=== PATIENT | female | born 1970 | race Caucasian/White ===

== ENCOUNTER → 2017-08-29 | Outpatient (CLI) | payer OTHER ==
--- NOTE | 2017-08-29 08:57 | US ---
EXAMINATION TYPE: US abdomen complete DATE OF EXAM: 08/29/2017 COMPARISON: MRI lumbar spine September 06, 2016 CLINICAL HISTORY: R10.9 Unspecified abdominal pain. Bloating, RUQ pain, vomiting, belching EXAM MEASUREMENTS: Liver Length: 17.0 cm Gallbladder Wall: 0.2 cm CBD: 0.5 cm Spleen: 13.2 cm Right Kidney: 10.5 x 4.7 x 4.5 cm Left Kidney: 12.3 x 5.9 x 5.3 cm *Technical limitations due to large amount of overlying bowel content Pancreas: portions obscured by overlying bowel Liver: upper limits of normal, attenuating Gallbladder: non mobile echogenic area = 0.4cm Evidence for sonographic Gifford's sign: yes CBD: wnl Spleen: upper limits of normal Right Kidney: ?possible subtle isoechoic area mid/lateral = 2.9 x 2.4 x 2.5cm vs. lobulated renal c ontour Left Kidney: lobulated Upper IVC: wnl Abd Aorta: wnl The liver is heterogeneously hyperechoic. Evaluation focal mass is suboptimal due to the heterogeneit y. The intrahepatic portion of the IVC and visualized abdominal aorta are within normal limits. The re is no evidence of cholelithiasis. Common bile duct is unremarkable. The visualized portions of t he pancreas are homogenous. The spleen is mildly enlarged. Kidneys are symmetric and free of hydron ephrosis. Some cortical thinning on the right is felt present. In the right kidney lateral aspect the re is round slightly isoechoic 2.9 x 2.4 cm area in which solid lesion cannot be excluded and follow- up is advised. No corresponding abnormality is seen on MRI lumbar spine 1 year ago, I favor lobulated contour. IMPRESSION: 1. No gallstones or ultrasound evidence for acute cholecystitis. 2. Mild splenomegaly is seen and may warrant further clinical workup. 3. Heterogeneous hyperechoic appearance to liver favors diffuse fatty infiltration. Clinical and live r lab correlation advised. 4. Cannot exclude 2.9 cm lateral right kidney solid lesion though favor lobulated contour, further in vestigation with renal protocol contrast-enhanced CT or MRI is advised.
== END | disposition home or self-care (01) ==
LOC: RADUSWWP 06:50
PROVIDERS: ATTEND Family Medicine
DX: R16.1 Splenomegaly, not elsewhere classified (principal); K76.89 Other specified diseases of liver
CPT/HCPCS: 76700

== ENCOUNTER → 2019-08-06 | Outpatient (CLI) | payer OTHER ==
--- NOTE | 2019-08-06 16:23 | XR ---
EXAMINATION TYPE: XR hand complete LT, XR wrist complete LT DATE OF EXAM: 08/06/2019 CLINICAL HISTORY: pain TECHNIQUE: Frontal, lateral and oblique images of the left hand are obtained. COMPARISON: None. FINDINGS: There is no acute fracture/dislocation evident. The joint spaces appear within normal limi ts. The overlying soft tissue appears unremarkable. IMPRESSION: There is no acute fracture or dislocation. ICD 10 NO FRACTURE, INITIAL EVALUATION EXAMINATION TYPE: XR hand complete LT, XR wrist complete LT DATE OF EXAM: 08/06/2019 CLINICAL HISTORY: pain TECHNIQUE: Frontal, lateral and oblique images of the left wrist are obtained. A fluid views also ob tained. COMPARISON: None. FINDINGS: There is no acute fracture/dislocation evident. Generative narrowing ulno radial joint spa ce. The overlying soft tissue appears unremarkable. IMPRESSION: There is no acute fracture or dislocation seen. ICD 10 NO FRACTURE, INITIAL EVALUATION
== END | disposition home or self-care (01) ==
LOC: RADXRMAIN 16:03
PROVIDERS: ATTEND Emergency Medicine
DX: S63.502A Unspecified sprain of left wrist, initial encounter (principal); S63.8X2A Sprain of other part of left wrist and hand, initial encounter

== ENCOUNTER → 2019-09-11 | Outpatient (CLI) | payer OTHER ==
--- NOTE | 2019-09-11 13:02 | US ---
EXAMINATION TYPE: US kidneys/renal and bladder DATE OF EXAM: 09/11/2019 COMPARISON: NONE CLINICAL HISTORY: R10.9 abd pain. LLQ pain, microscopic hematuria, h/o renal stones EXAM MEASUREMENTS: Right Kidney: 11.1 x 5.1 x 4.8cm Left Kidney: 13.8 x 4.4 x 6.7cm Right Kidney: No hydronephrosis or masses seen Left Kidney: 1.1cm mid pole shadowing stone seen Bladder: wnl Bilateral Jets seen: yes There is no evidence for hydronephrosis at this point in time. No masses are identified. The urin sylvie bladder is anechoic. Bilateral ureteral jets are seen. IMPRESSION: Solitary nonobstructing 1.1 cm left renal calculus. No hydronephrosis of either kidney.
== END | disposition home or self-care (01) ==
LOC: RADUSWWP 12:23
PROVIDERS: ATTEND Family Medicine
DX: N20.0 Calculus of kidney (principal); Z88.0 Allergy status to penicillin; Z88.1 Allergy status to other antibiotic agents
CPT/HCPCS: 76770

== ENCOUNTER 2019-10-14 15:02 | Emergency (ER) | payer OTHER ==
--- NOTE | 2019-10-14 14:48 | CT ---
EXAMINATION TYPE: CT abdomen pelvis wo con DATE OF EXAM: 10/14/2019 COMPARISON: 09/08/2017 HISTORY: Lower abdominal pain radiating into her back. CT DLP: 841 mGycm Automated exposure control for dose reduction was used. TECHNIQUE: Helical acquisition of images was performed from the lung bases through the pelvis. FINDINGS: LUNG BASES: No significant abnormality is appreciated. LIVER/GB: Low-attenuation throughout the liver compatible with hepatic steatosis. PANCREAS: No significant abnormality is seen. SPLEEN: No significant abnormality is seen. ADRENALS: No significant abnormality is seen. KIDNEYS: There is lobulation of the renal cortices bilaterally. There is mild left hydronephrosis sec ondary to a left UPJ calcification measuring 7 mm. No additional calculi noted. Suspect partial dupli cation of the left renal collecting system. ADENOPATHY: None visualized. OSSEOUS STRUCTURES: No significant abnormality is seen. BOWEL: Bowel gas pattern nonspecific. There is a segment of small bowel in the right lower quadrant with a thickened wall which may be related to incomplete distention rather than enteritis correlate c linically.. OTHER: Aorta normal caliber with mild atherosclerotic changes. There appears to be reversed orientati on of the SMV and SMA suggestive of malrotation. There is no obstructive signs within the bowel. Onofre nal images demonstrate virtually all the small bowel be contained within the right abdomen in the rig ht colon appears to be localized into the right upper quadrant. IMPRESSION: 1. Mild left hydronephrosis secondary to obstructing 7 mm left renal pelvic calcification 2. There is a severe short segment of small bowel with a thickened wall the right lower quadrant whic h may be related to incomplete distention rather than mild enteritis correlate clinically. 3. Correlate for hepatic steatosis. 4. There is reversed orientation of the SMA and SMV correlate for malrotation. No obstructive signs as discussed above. Correlate clinically.
[2019-10-14 15:29] VITALS: BP 137/98; PULSE 87; RESP 19; TEMP 97.8
[2019-10-14] MEDS ORDERED: KETOROLAC 30 MG/ML 1 ML VIAL IVP STA (16:05)
[2019-10-14] MEDS ORDERED: METOCLOPRAMIDE 5 MG/ML 2 ML VIAL IVP STA (16:05)
[2019-10-14] MEDS ORDERED: SODIUM CHLORIDE 0.9% 1,000 ML IV STA (16:05)
--- NOTE | 2019-10-14 16:08 | ED ---
General Adult HPI - General Chief complaint: Abdominal Pain Time Seen by Provider: 10/14/19 15:35 Source: patient, RN notes reviewed Mode of arrival: ambulatory Limitations: no limitations - History of Present Illness Initial comments: Patient is a pleasant 48-year-old female presenting to the emergency Department with complaints of abdominal discomfort. Patient had symptoms month or so ago and is diagnosed with a kidney stone. Symptoms occurred again yesterday and were severe. Symptoms are certainly get worse again today. Discomfort is currently 7/10. Discomfort is somewhat diffuse however somewhat more left posterior CVA region. Patient has had some nausea, none at this time. No constipation or diarrhea. No fevers. - Related Data Home Medications Medication Instructions Recorded Confirmed ALPRAZolam [Xanax] 0.25 mg PO DAILY PRN 06/10/16 08/09/16 Ascorbic Acid [Vitamin C] 500 mg PO DAILY 06/10/16 08/09/16 Atorvastatin [Lipitor] 20 mg PO QAM 06/10/16 08/18/16 Calcium Carbonate [Calcium] 600 mg PO DAILY 06/10/16 08/18/16 Cholecalciferol [Vitamin D3] 1,000 unit PO DAILY 06/10/16 08/18/16 Cyanocobalamin [Vitamin B-12] 500 mcg PO DAILY 06/10/16 08/18/16 Loratadine [Claritin] 10 mg PO DAILY 06/10/16 08/18/16 Omeprazole 20 mg PO DAILY 06/10/16 08/18/16 Citalopram Hydrobromide [CeleXA] 20 mg PO DAILY 07/01/16 08/18/16 Ibuprofen (Unknown Dose) 1 tab PO TID 07/01/16 08/18/16 Previous Rx's Medication Instructions Recorded Cephalexin [Keflex] 500 mg PO Q6HR 3 Days #12 cap 10/14/19 Tamsulosin [Flomax] 0.4 mg PO DAILY #14 cap 10/14/19 Allergies Allergy/AdvReac Type Severity Reaction Status Date / Time Penicillins Allergy Rash/Hives Verified 08/18/16 12:26 sulfamethoxazole Allergy Unknown Verified 10/14/19 15:29 [From Bactrim] trimethoprim [From Bactrim] Allergy Unknown Verified 10/14/19 15:29 Review of Systems ROS Statement: Those systems with pertinent positive or pertinent negative responses have been documented in the HPI. ROS Other: All systems not noted in ROS Statement are negative. Constitutional: Denies: fever Eyes: Denies: eye pain ENT: Denies: ear pain Respiratory: Denies: cough Cardiovascular: Denies: chest pain Endocrine: Denies: fatigue Gastrointestinal: Reports: abdominal pain, nausea Genitourinary: Reports: hematuria (Occasional hematuria). Denies: dysuria Musculoskeletal: Reports: as per HPI Skin: Denies: rash Neurological: Denies: weakness Past Medical History Past Medical History: GERD/Reflux, Hyperlipidemia, Osteoarthritis (OA) Additional Past Medical History / Comment(s): Hx. of migraines. has abd. bloating-pain. hiatal hernia History of Any Multi-Drug Resistant Organisms: None Reported Past Surgical History: Hysterectomy, Orthopedic Surgery Additional Past Surgical History / Comment(s): R hip surgery.EGD AND COLONOSCOPY. Past Anesthesia/Blood Transfusion Reactions: No Reported Reaction Past Psychological History: Depression Smoking Status: Former smoker Past Alcohol Use History: Occasional Past Drug Use History: None Reported - Past Family History Father Family Medical History: Cancer Additional Family Medical History / Comment(s): Kidney Mother Family Medical History: Cancer General Exam Limitations: no limitations General appearance: alert, in no apparent distress Head exam: Present: normocephalic Eye exam: Present: normal appearance, PERRL ENT exam: Present: normal oropharynx Neck exam: Present: normal inspection Respiratory exam: Present: normal lung sounds bilaterally Cardiovascular Exam: Present: regular rate, normal rhythm Expanded Peripheral pulses: 2+: Posterior Tibialis (R), Posterior Tibialis (L), Dorsalis Pedis (R), Dorsalis Pedis (L) GI/Abdominal exam: Present: soft, tenderness (Patient does have some diffuse abdominal discomfort). Absent: distended, guarding, rebound, rigid Extremities exam: Present: normal inspection. Absent: pedal edema, calf tenderness Neurological exam: Present: alert Psychiatric exam: Present: normal affect, normal mood Skin exam: Present: normal color Course Vital Signs 10/14/19 15:27 Temperature 97.8 F Pulse Rate 87 Respiratory 19 Rate Blood Pressure 137/98 O2 Sat by Pulse 97 Oximetry - Reevaluation(s) Reevaluation #1: 10/14/19 16:04 Case was discussed in detail with Dr. 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 Medical Decision Making - Medical Decision Making Patient reevaluated and resting comfortably in bed. Patient requests discharge. Patient updated on results and need for follow-up with urology. - Lab Data Result diagrams: 10/14/19 16:14 10/14/19 16:14 Lab Results 10/14/19 10/14/19 10/14/19 Range/Units 16:14 16:14 16:14 WBC 7.1 (3.8-10.6) k/uL RBC 4.82 (3.80-5.40) m/uL Hgb 14.4 (11.4-16.0) gm/dL Hct 42.9 (34.0-46.0) % MCV 89.1 (80.0-100.0) fL MCH 29.9 (25.0-35.0) pg MCHC 33.5 (31.0-37.0) g/dL RDW 12.7 (11.5-15.5) % Plt Count 332 (150-450) k/uL Neutrophils % 66 % Lymphocytes % 25 % Monocytes % 4 % Eosinophils % 3 % Basophils % 1 % Neutrophils # 4.6 (1.3-7.7) k/uL Lymphocytes # 1.8 (1.0-4.8) k/uL Monocytes # 0.3 (0-1.0) k/uL Eosinophils # 0.2 (0-0.7) k/uL Basophils # 0.0 (0-0.2) k/uL Sodium 138 (137-145) mmol/L Potassium 4.5 (3.5-5.1) mmol/L Chloride 103 (98-107) mmol/L Carbon Dioxide 26 (22-30) mmol/L Anion Gap 9 mmol/L BUN 17 (7-17) mg/dL Creatinine 0.60 (0.52-1.04) mg/dL Est GFR (CKD-EPI)AfAm >90 (>60 ml/min/1.73 sqM) Est GFR (CKD-EPI)NonAf >90 (>60 ml/min/1.73 sqM) Glucose 88 (74-99) mg/dL Calcium 10.0 (8.4-10.2) mg/dL Total Bilirubin 0.8 (0.2-1.3) mg/dL AST 58 H (14-36) U/L ALT 29 (9-52) U/L Alkaline Phosphatase 94 (38-126) U/L Total Protein 7.6 (6.3-8.2) g/dL Albumin 4.4 (3.5-5.0) g/dL Amylase 61 (30-110) U/L Lipase 159 (23-300) U/L Urine Color Light Yellow Urine Appearance Clear (Clear) Urine pH 6.5 (5.0-8.0) Ur Specific [place] 1.004 (1.001-1.035) Urine Protein Negative (Negative) Urine Glucose (UA) Negative (Negative) Urine Ketones Negative (Negative) Urine Blood Trace H (Negative) Urine Nitrite Negative (Negative) Urine Bilirubin Negative (Negative) Urine Urobilinogen <2.0 (<2.0) mg/dL Ur Leukocyte Esterase Negative (Negative) Urine RBC 1 (0-5) /hpf Urine WBC 5 (0-5) /hpf Ur Squamous Epith Cells 4 (0-4) /hpf Urine Bacteria Moderate H (None) /hpf - Radiology Data Radiology results: report reviewed (Review of report from earlier today), image reviewed (KUB reveals no acute process. Left renal calculus.) Disposition Clinical Impression: Ureterolithiasis Disposition: HOME SELF-CARE Condition: Stable Instructions (If sedation given, give patient instructions): Kidney Stones (ED) Additional Instructions: Please follow-up with primary care physician and urology in the next couple of days for recheck. Return for fevers, increased pain, vomiting, worsening symptoms or other concerns. Prescription and sent to [facility] Prescriptions: Tamsulosin [Flomax] 0.4 mg PO DAILY #14 cap Cephalexin [Keflex] 500 mg PO Q6HR 3 Days #12 cap Is patient prescribed a controlled substance at d/c from ED?: No Referrals: Danelle Yang MD [Primary Care Provider] - 1-2 days Time of Disposition: 17:44
[2019-10-14 16:26] LABS: Basophils % (A) 1 %; Eosinophils # (A) 0.2 k/uL (0-0.7); Eosinophils % (A) 3 %; HCT 42.9 % (34.0-46.0); HGB 14.4 gm/dL (11.4-16.0); Lymphocytes # (A) 1.8 k/uL (1.0-4.8); Lymphocytes % (A) 25 %; MCH 29.9 pg (25.0-35.0); MCHC 33.5 g/dL (31.0-37.0); MCV 89.1 fL (80.0-100.0); Mean Platelet Volume 8.5; Monocytes # (A) 0.3 k/uL (0-1.0); Monocytes % (A) 4 %; Neutrophils # (A) 4.6 k/uL (1.3-7.7); Neutrophils % (A) 66 %; Platelet Count 332 k/uL (150-450); RBC 4.82 m/uL (3.80-5.40); RDW 12.7 % (11.5-15.5); WBC 7.1 k/uL (3.8-10.6)
[2019-10-14 16:29] LABS: Appearance,Urine Clear (Clear); Bacteria,Urine Moderate /hpf; Bilirubin,Urine Negative (Negative); Blood,Urine Trace (Negative); Color,Urine Light Yellow; Glucose,Urine (UA) Negative (Negative); Ketones,Urine Negative (Negative); Leukocyte Esterase,Urine Negative (Negative); Nitrite,Urine Negative (Negative); PH, Urine 6.5 (5.0-8.0); Protein,Urine Negative (Negative); RBC,Urine 1 /hpf (0-5); Specific Gravity,Urine 1.004 (1.001-1.035); Squamous Epithelial Cell,Urine 4 /hpf (0-4); Urobilinogen,Urine <2.0 mg/dL (<2.0); WBC,Urine 5 /hpf (0-5)
[2019-10-14 16:41] LABS: ALT 29 U/L (9-52); AST 58 U/L (14-36); African American GFR (CKD) >90 (>60 ml/min/1.73 sqM); Albumin 4.4 g/dL (3.5-5.0); Alkaline Phosphatase 94 U/L (38-126); Amylase 61 U/L (30-110); Anion Gap 9 mmol/L; Blood Urea Nitrogen 17 mg/dL (7-17); Carbon Dioxide 26 mmol/L (22-30); Chloride 103 mmol/L (98-107); Glucose 88 mg/dL (74-99); Non-African American GFR(CKD) >90 (>60 ml/min/1.73 sqM); Sodium 138 mmol/L (137-145); Total Bilirubin 0.8 mg/dL (0.2-1.3); Total Protein 7.6 g/dL (6.3-8.2)
[2019-10-14 16:51] LABS: Potassium 4.5 mmol/L (3.5-5.1)
--- NOTE | 2019-10-14 17:30 | XR ---
EXAMINATION TYPE: XR KUB DATE OF EXAM: 10/14/2019 COMPARISON: None HISTORY: Abdominal pain TECHNIQUE: 2 views upright FINDINGS: There is some contrast in the large and small bowel. There is no sign of intestinal obstruc tion or pneumoperitoneum. Renal calculi are obscured by contrast material. Lung bases are clear. Ther e is 8 mm calculus over the lower pole left kidney on the medial aspect. IMPRESSION: Nonacute abdomen. Left renal calculus not changed compared to CT scan earlier today at 2: 00 PM.
== END 2019-10-14 17:55 | disposition home or self-care (01) ==
LOC: EC 15:02
DX: N20.1 Calculus of ureter (principal); E78.5 Hyperlipidemia, unspecified; K21.9 Gastro-esophageal reflux disease without esophagitis; F32.9 Major depressive disorder, single episode, unspecified; Z79.899 Other long term (current) drug therapy; Z88.0 Allergy status to penicillin; Z88.1 Allergy status to other antibiotic agents; Z88.2 Allergy status to sulfonamides; Z87.891 Personal history of nicotine dependence
CPT/HCPCS: 36415; 80053; 82150; 83690; 85025; 81001; 74018; 74176; 99284; 96374; 96375; 96361; J2765; J1885

== ENCOUNTER → 2019-11-21 | Outpatient (CLI) | payer OTHER ==
[2019-11-21 15:13] LABS: Basophils % (A) 0 %; Eosinophils # (A) 0.1 k/uL (0-0.7); Eosinophils % (A) 2 %; HCT 45.1 % (34.0-46.0); HGB 14.2 gm/dL (11.4-16.0); Lymphocytes # (A) 1.9 k/uL (1.0-4.8); Lymphocytes % (A) 22 %; MCH 28.3 pg (25.0-35.0); MCHC 31.5 g/dL (31.0-37.0); MCV 90.1 fL (80.0-100.0); Mean Platelet Volume 8.2; Monocytes # (A) 0.3 k/uL (0-1.0); Monocytes % (A) 4 %; Neutrophils # (A) 5.9 k/uL (1.3-7.7); Neutrophils % (A) 70 %; Platelet Count 295 k/uL (150-450); RBC 5.01 m/uL (3.80-5.40); RDW 12.7 % (11.5-15.5); WBC 8.4 k/uL (3.8-10.6)
[2019-11-21 15:21] LABS: African American GFR (CKD) >90 (>60 ml/min/1.73 sqM); Anion Gap 7 mmol/L; Blood Urea Nitrogen 31 mg/dL (7-17); Calcium 9.9 mg/dL (8.4-10.2); Carbon Dioxide 30 mmol/L (22-30); Chloride 103 mmol/L (98-107); Glucose 105 mg/dL (74-99); Non-African American GFR(CKD) >90 (>60 ml/min/1.73 sqM); Potassium 4.2 mmol/L (3.5-5.1); Sodium 140 mmol/L (137-145)
== END | disposition home or self-care (01) ==
LOC: LABPAT 14:35
PROVIDERS: ATTEND Urology
DX: Z01.812 Encounter for preprocedural laboratory examination (principal); N20.0 Calculus of kidney
CPT/HCPCS: 80048; 85025

== ENCOUNTER 2019-11-25 08:24 | Day surgery (SDC) | payer OTHER ==
[2019-11-20 14:14] VITALS: BMI 29.2
--- NOTE | 2019-11-20 19:56 | P.GSHP ---
History of Present Illness H&P Date: 11/13/19 Chief Complaint: Flank Pain The patient is a 48-year-old white female with no prior history of urolithiasis. She now presents with a one-month history of flank and lower abdominal pain. Urine cytology showed atypical cells. A computed tomography scan shows mild left hydronephrosis due to a 7 mm left UPJ calculus. Alternative treatment options were reviewed in detail. These include observation, medical expulsion therapy, extracorporal shockwave lithotripsy (ESWL), and ureteroscopy with laser lithotripsy. The pros and cons of each were reviewed, and she has elected to undergo ESWL. - Constitutional Constitutional: Reports chills, Denies fever - Gastrointestinal Gastrointestinal: Reports abdominal pain, Reports nausea, Denies vomiting - Genitourinary (Male) Genitourinary: Reports flank pain, Reports hematuria, Reports kidney stones Past Medical History Past Medical History: GERD/Reflux, Hyperlipidemia, Osteoarthritis (OA) Additional Past Medical History / Comment(s): Hx. of migraines. has abd. bloating-pain. hiatal hernia History of Any Multi-Drug Resistant Organisms: None Reported Past Surgical History: Hysterectomy, Orthopedic Surgery Additional Past Surgical History / Comment(s): R hip surgery.EGD AND COLONOSCOPY. Past Anesthesia/Blood Transfusion Reactions: No Reported Reaction Past Psychological History: Depression Smoking Status: Former smoker Past Alcohol Use History: Occasional Past Drug Use History: None Reported - Past Family History Father Family Medical History: Cancer Additional Family Medical History / Comment(s): Kidney Mother Family Medical History: Cancer Medications and Allergies Home Medications Medication Instructions Recorded Confirmed Type Loratadine [Claritin] 10 mg PO DAILY 06/10/16 11/20/19 History Omeprazole 20 mg PO DAILY 06/10/16 11/20/19 History Calcium Polycarbophil [Fibercon] 625 mg PO HS 11/20/19 11/20/19 History DULoxetine HCL [Cymbalta] 60 mg PO DAILY 11/20/19 11/20/19 History Docusate [Colace] 100 mg PO DAILY 11/20/19 11/20/19 History Estradiol 0.5 mg PO DAILY 11/20/19 11/20/19 History Fenofibrate Nanocrystallized 145 mg PO HS 11/20/19 11/20/19 History [Fenofibrate] HYDROcodone/APAP 5-325MG [[place] 1 tab PO BID 11/20/19 11/20/19 History 5-325] Hydrochlorothiazide 25 mg PO HS 11/20/19 11/20/19 History Ibuprofen [Motrin] 800 mg PO HS PRN 11/20/19 11/20/19 History Levothyroxine Sodium [Synthroid] 50 mcg PO DAILY 11/20/19 11/20/19 History Multivitamin [Multivitamins Adult 1 each PO DAILY 11/20/19 11/20/19 History Gummies] Potassium 99 mg PO DAILY 11/20/19 11/20/19 History Tamsulosin [Flomax] 0.4 mg PO HS 11/20/19 11/20/19 History Allergies Allergy/AdvReac Type Severity Reaction Status Date / Time Penicillins Allergy Rash/Hives Verified 11/20/19 13:59 sulfamethoxazole Allergy Unknown Verified 11/20/19 13:59 [From Bactrim] trimethoprim [From Bactrim] Allergy Unknown Verified 11/20/19 13:59 Surgical - Exam - General well developed, well nourished, no distress - Neck no masses, trachea midline - Respiratory normal respiratory effort, clear to auscultation - Cardiovascular Rhythm: regular Abnormal Heart Sounds: no systolic murmur, no diastolic murmur, no rub, no S3 Gallop, no S4 Gallop, no click, no other - Abdomen Abdomen: soft, tender, no masses, no guarding, no rigid, no rebound, no distended - Psychiatric oriented to time, oriented to person, oriented to place, speech is normal, memory intact Results - Imaging CT scan - abdomen: report reviewed, image reviewed Assessment and Plan (1) Calculus of kidney Status: Acute Code(s): N20.0 - CALCULUS OF KIDNEY SNOMED Code(s): 32654817 Plan: Left extracorporal shockwave lithotripsy (ESWL). The procedure has been reviewed with the patient. She understands potential risks to include anesthesia, renal contusion, perinephric hematoma, injury to adjacent organs, tr eatment failure, incomplete fragmentation, and [place]. She is aware of the possible need for secondary treatments. She was also offered the option of ureteroscopy with laser lithotripsy.
[~2019-11-25 08:24] MED LIST: LACTATED RINGERS 1,000 ML IV SCH; LIDOCAINE 1% 20 ML VIAL (10MG/ML) FOR IV START INTRADERMA PRN
--- NOTE | 2019-11-25 08:46 | XR ---
EXAMINATION TYPE: XR KUB DATE OF EXAM: 11/25/2019 HISTORY: Pain Comparison: None.Single KUB is submitted for interpretation. Findings: Right renal calculi: None Visualized. Right ureteral calculi: None Visualized. Left renal calculi: 8.5 mm calculus overlies the region of the medial left kidney. No additional bautista culi seen with certainty. Left ureteral calculi: None Visualized. Pelvic calcifications: None Visualized. Bowel gas pattern is unremarkable. No free air. No mass effects. IMPRESSION: 1. 8.5 mm calculus overlies the region of the medial left kidney. No additional calculi seen with cer tainty.
[2019-11-25 08:59] VITALS: RESP 16; TEMP 97.3
[2019-11-25] MEDS ORDERED: PROPOFOL 10 MG/ML 20 ML VIAL IV ONE (10:03)
[2019-11-25] MEDS ORDERED: fentaNYL (PF) 50 MCG/ML 2 ML AMP ONE (10:03)
[2019-11-25] MEDS ORDERED: MIDAZOLAM 2 MG/2 ML VIAL ONE (10:03)
[2019-11-25] MEDS ORDERED: KETAMINE 10 MG/ML 20 ML VIAL ONE (10:03)
--- NOTE | 2019-11-25 10:40 | P.OP ---
Date of Procedure: 11/25/19 Preoperative Diagnosis: Left renal calculus Postoperative Diagnosis: Same Procedure(s) Performed: Left extracorporeal shockwave lithotripsy (ESWL) Anesthesia: MAC Surgeon: Specner Quiroz Estimated Blood Loss (ml): 0 IV fluids (ml): 200 Pathology: none sent Condition: stable Disposition: PACU Indications for Procedure: The patient is a 48-year-old white female with no prior history of urolithiasis. She now presents with a one-month history of flank and lower abdominal pain. Urine cytology showed atypical cells. A computed tomography scan shows mild left hydronephrosis due to a 7 mm left UPJ calculus. Alternative treatment options were reviewed in detail. These include observation, medical expulsion therapy, extracorporal shockwave lithotripsy (ESWL), and ureteroscopy with laser lithotripsy. The pros and cons of each were reviewed, and she has elected to undergo ESWL. On the preoperative KUB x-ray, the calculus measures 8.5 mm and appears to have migrated into a lower pole calyx. Operative Findings: Excellent fragmentation of the calculus is noted. Description of Procedure: The patient was taken to the operating room and placed on the Dornier Compact Delta II lithotripter in the supine position. The calculus was seen on biplanar fluoroscopy. Once the patient was properly positioned and sedated, lithotripsy was performed. The energy level was gradually increased per protocol, to an energy level of 5. After 100 shocks were administered, a 2 minute pause was instituted per protocol. A total of 2000 shocks were given at a rate of 80 shocks per minute. Fluoroscopy was utilized at a minimum to ensure proper positioning and determine the treatment status. The calculus changed in appearance, consistent with fragmentation, and in fact the calculus could no longer be seen upon completion of the procedure. The patient tolerated the procedure well was taken to the recovery room in stable condition. Instructions were given to strain the urine, and the patient will follow-up within one week.
[2019-11-25] MEDS ORDERED: HYDROcodone/APAP 5-325MG 1 EACH TAB PO ONE (11:28)
[2019-11-25 11:35] VITALS: BP 123/85; PULSE 75
== END 2019-11-25 12:14 | disposition home or self-care (01) ==
LOC: ORWHC2ENDO 08:24
PROVIDERS: ATTEND Urology
DX: N13.2 Hydronephrosis with renal and ureteral calculous obstruction (principal); K21.9 Gastro-esophageal reflux disease without esophagitis; I10 Essential (primary) hypertension; E78.5 Hyperlipidemia, unspecified; M19.90 Unspecified osteoarthritis, unspecified site; G43.909 Migraine, unspecified, not intractable, without status migrainosus; Z87.19 Personal history of other diseases of the digestive system; Z90.710 Acquired absence of both cervix and uterus; Z98.890 Other specified postprocedural states; Z87.891 Personal history of nicotine dependence; Z79.890 Hormone replacement therapy; Z79.891 Long term (current) use of opiate analgesic; Z79.899 Other long term (current) drug therapy; Z88.0 Allergy status to penicillin; Z88.2 Allergy status to sulfonamides; Z88.1 Allergy status to other antibiotic agents
CPT/HCPCS: 74018; 50590; J2250; J3010; J2704

== ENCOUNTER → 2019-11-28 | Outpatient (CLI) | payer OTHER ==
--- NOTE | 2019-11-28 15:10 | XR ---
KUB HISTORY: Renal calculus Frontal KUB and 2 images correlated prior KUB 11/25/2019 The calcification overlying the lower pole the left kidney is not seen definitively. There is overlyi ng bowel gas. Scattered calcifications are again noted within the pelvis. No evident pneumoperitoneum or bowel obstruction. IMPRESSION: Left renal calculus not seen definitively on today's exam.
== END | disposition home or self-care (01) ==
LOC: RADXRMAIN 14:28
PROVIDERS: ATTEND Urology
DX: N20.0 Calculus of kidney (principal)
CPT/HCPCS: 74018

== ENCOUNTER → 2020-01-15 | Outpatient (CLI) | payer OTHER ==
--- NOTE | 2020-01-15 11:03 | FL ---
EXAMINATION TYPE: FL small bowel follow through DATE OF EXAM: 01/15/2020 CLINICAL HISTORY: Abdominal pain TECHNIQUE: A single contrast small bowel follow through is performed utilizing barium. COMPARISON: KUB 11/28/2001 FINDINGS: [employer] image of the abdomen shows no gross abnormality. No suspicious calcifications overly ing the kidneys. Mild hypertrophic change of the spine. The small bowel study shows normal transit to the colon in less than 40 minutes. There is a normal m ucosal fold pattern throughout the small bowel. There is no evidence of any stricture or filling def ect noted. The terminal ileum is spotted and appears unremarkable. There is a small bowel seen conta ined within the right abdomen and the entire colon appears within the left abdomen compatible with ma lrotation. IMPRESSION: 1. Findings compatible with bowel malrotation with the colon seen in the left abdomen in the small richard wel seen in the right abdomen. No obstruction. 2. Preliminary view demonstrated no evidence of renal calcification by standard x-ray.
== END | disposition home or self-care (01) ==
LOC: RADFLMAIN 08:47
PROVIDERS: ATTEND Internal Medicine
DX: R93.5 Abnormal findings on diagnostic imaging of other abdominal regions, including retroperitoneum (principal)
CPT/HCPCS: 74248

== ENCOUNTER → 2021-04-30 | Outpatient (CLI) | payer OTHER ==
--- NOTE | 2021-05-04 13:55 | MM ---
Reason for exam: screening (asymptomatic). History: Patient is postmenopausal. Excisional biopsy of the left breast. Physical Findings: A clinical breast exam by your physician is recommended on an annual basis and results should be correlated with mammographic findings. MG Screening Mammo w CAD Bilateral CC and MLO view(s) were taken. No prior studies available for comparison. The breast tissue is heterogeneously dense. This may lower the sensitivity of mammography. There is no discrete abnormality. No significant changes when compared with prior studies. ASSESSMENT: Negative, BI-RAD 1 RECOMMENDATION: Routine screening mammogram of both breasts in 1 year.
== END | disposition home or self-care (01) ==
LOC: RADMAMWWP 14:30
PROVIDERS: ATTEND Family Medicine
DX: Z12.31 Encounter for screening mammogram for malignant neoplasm of breast (principal); Z78.0 Asymptomatic menopausal state
CPT/HCPCS: 77067

== ENCOUNTER 2023-03-29 20:01 | Emergency (ER) | payer OTHER ==
[2023-03-29 20:25] VITALS: TEMP 98.4
[2023-03-29] MEDS ORDERED: KETOROLAC 15 MG/ML 1 ML VIAL IM STA (20:53)
[2023-03-29] MEDS ORDERED: DEXAMETHASONE SOD PHOSPHATE 10 MG/ML 1 ML VIAL IM STA (20:53)
[2023-03-29] MEDS ORDERED: ORPHENADRINE 30 MG/ML 2 ML VIAL IM STA (20:53)
[2023-03-29 21:16] LABS: Appearance,Urine Cloudy (Clear); Bilirubin,Urine Negative (Negative); Blood,Urine Negative (Negative); Color,Urine Yellow; Glucose,Urine (UA) Negative (Negative); Hyaline Casts,Urine 1 /lpf (0-2); Ketones,Urine Negative (Negative); Leukocyte Esterase,Urine Negative (Negative); Mucus,Urine Few /hpf; Nitrite,Urine Negative (Negative); Protein,Urine Negative (Negative); RBC,Urine 2 /hpf (0-5); Specific Gravity,Urine 1.013 (1.001-1.035); Squamous Epithelial Cell,Urine 1 /hpf (0-4); Urobilinogen,Urine <2.0 mg/dL (<2.0); WBC,Urine 2 /hpf (0-5)
[2023-03-29] MEDS ORDERED: CYCLOBENZAPRINE 10MG STARTER 3 TAB BTL PO STA (21:53)
--- NOTE | 2023-03-29 21:53 | ED ---
Back Pain HPI - General Chief Complaint: Back Pain/Injury Stated Complaint: lower back pain Time Seen by Provider: 03/29/23 20:30 Source: patient Limitations: no limitations - History of Present Illness Initial Comments: Patient is a 52-year-old female presenting with chief complaint of back pain. She has history of chronic back pain and states that it feels like a heightened eversion of her chronic pain. Located primarily on the right lower back. Feels like a spasming. Radiates down the leg. No loss of bowel or bladder control or saddle paresthesia. No dysuria, hematuria, fever, chills, nausea, vomiting, abdominal pain. No recent injury or trauma. - Related Data Home Medications Medication Instructions Recorded Confirmed Loratadine [Claritin] 10 mg PO DAILY 06/10/16 11/25/19 Omeprazole 20 mg PO DAILY 06/10/16 11/25/19 DULoxetine HCL [Cymbalta] 60 mg PO DAILY 11/20/19 11/25/19 Docusate [Colace] 100 mg PO DAILY 11/20/19 11/25/19 Fenofibrate Nanocrystallized 145 mg PO HS 11/20/19 11/25/19 [Fenofibrate] HYDROcodone/APAP 5-325MG [[place] 1 tab PO BID 11/20/19 11/25/19 5-325] Ibuprofen [Motrin] 800 mg PO HS PRN 11/20/19 11/25/19 Levothyroxine Sodium [Synthroid] 50 mcg PO DAILY 11/20/19 11/25/19 Multivitamin [Multivitamins Adult 1 each PO DAILY 11/20/19 11/25/19 Gummies] Potassium 99 mg PO DAILY 11/20/19 11/25/19 Tamsulosin [Flomax] 0.4 mg PO HS 11/20/19 11/25/19 calcium polycarbophiL [Fibercon] 625 mg PO HS 11/20/19 11/25/19 estradioL [Estradiol] 0.5 mg PO DAILY 11/20/19 11/25/19 hydroCHLOROthiazide 25 mg PO HS 11/20/19 11/25/19 Previous Rx's Medication Instructions Recorded Hydrocodone/Acetaminophen [[place] 1 - 2 each PO Q4HR PRN #10 tab 11/25/19 5-325] Cyclobenzaprine [Flexeril] 10 mg PO TID PRN #15 tab 03/29/23 methylPREDNISolone Dose Pack 4 mg PO DIRECTED #1 packet 03/29/23 [Medrol Dose Pack] Allergies Allergy/AdvReac Type Severity Reaction Status Date / Time Penicillins Allergy Rash/Hives Verified 03/29/23 20:25 sulfamethoxazole Allergy Unknown Verified 03/29/23 20:25 [From Bactrim] trimethoprim [From Bactrim] Allergy Unknown Verified 03/29/23 20:25 Review of Systems ROS Statement: Those systems with pertinent positive or pertinent negative responses have been documented in the HPI. ROS Other: All systems not noted in ROS Statement are negative. Past Medical History Past Medical History: GERD/Reflux, Hyperlipidemia, Osteoarthritis (OA) Additional Past Medical History / Comment(s): Hx. of migraines. has abd. bloating-pain. hiatal hernia History of Any Multi-Drug Resistant Organisms: None Reported Past Surgical History: Hysterectomy, Orthopedic Surgery Additional Past Surgical History / Comment(s): R hip surgery.EGD AND COLONOSCOPY. Past Anesthesia/Blood Transfusion Reactions: No Reported Reaction Past Psychological History: Depression Smoking Status: Never smoker Past Alcohol Use History: Occasional Past Drug Use History: None Reported - Past Family History Father Family Medical History: Cancer Additional Family Medical History / Comment(s): Kidney Mother Family Medical History: Cancer General Exam Limitations: no limitations General appearance: alert, in no apparent distress Head exam: Present: atraumatic, normocephalic, normal inspection Eye exam: Present: normal appearance, EOMI. Absent: scleral icterus, periorbital swelling Neck exam: Present: normal inspection, full ROM Back exam: Present: normal inspection, muscle spasm, paraspinal tenderness Neurological exam: Present: alert, oriented X3, CN II-XII intact Psychiatric exam: Present: normal affect, normal mood Skin exam: Present: warm, dry, intact, normal color. Absent: rash Course Vital Signs 03/29/23 03/29/23 20:20 22:14 Temperature 98.4 F Pulse Rate 101 H 90 Respiratory 20 16 Rate Blood Pressure 166/110 150/100 O2 Sat by Pulse 97 Oximetry Medical Decision Making - Medical Decision Making Was pt. sent in by a medical professional or institution (, PA, FIELD SALES ENGINEER, urgent care, hospital, or skilled nursing...) When possible be specific @ -No Did you speak to anyone other than the patient for history (EMS, parent, family, police, friend...)? What history was obtained from this source @ -No Did you review nursing and triage notes (agree or disagree)? Why? @ -I reviewed and agree with nursing and triage notes Were old charts reviewed (outside hosp., previous admission, EMS record, old EKG, old radiological studies, urgent care reports/EKG's, skilled nursing records)? Report findings @ -No old charts were reviewed Differential Diagnosis (chest pain, altered mental status, abdominal pain women, abdominal pain men, vaginal bleeding, weakness, fever, dyspnea, syncope, headache, dizziness, GI bleed, back pain, seizure, CVA, palpatations, mental health, musculoskeletal)? @ - MDM Differential Back Pain: Strain, zoster, cauda equina syndrome, epidural abscess, vertebral osteomyelitis, discitis, fracture, subluxation, disc herniation, DJD, spinal stenosis, dissection, AAA, pancreatitis, peptic ulcer disease, pyelonephritis, kidney stone this is not meant to be an all-inclusive list. EKG interpreted by me (3pts min.). @ -As above X-rays interpreted by me (1pt min.). @ -None done CT interpreted by me (1pt min.). @ -None done U/S interpreted by me (1pt. min.). @ -None done What testing was considered but not performed or refused? (CT, X-rays, U/S, labs)? Why? @ -None What meds were considered but not given or refused? Why? @ -None Did you discuss the management of the patient with other professionals (professionals i.e. , PA, FIELD SALES ENGINEER, lab, RT, psych nurse, social service technician, cook helper preserves, teacher, risk control officer, case preparer and liner)? Give summary @ -No Was smoking cessation discussed for >3mins.? @ -No Was critical care preformed (if so, how long)? @ -No Were there social determinants of health that impacted care today? How? (Homelessness, low income, unemployed, alcoholism, drug addiction, transportation, low edu. Level, literacy, decrease access to med. care, [facility], rehab)? @ -No Was there de-escalation of care discussed even if they declined (Discuss DNR or withdrawal of care, Hospice)? DNR status @ -No What co-morbidities impacted this encounter? (DM, HTN, Smoking, COPD, CAD, Cancer, CVA, ARF, Chemo, Hep., AIDS, mental health diagnosis, sleep apnea, morbid obesity)? @ -None Was patient admitted / discharged? Hospital course, mention meds given and route, prescriptions, significant lab abnormalities, going to OR and other pertinent info. @ -Patient is a 52-year-old female with history of chronic back pain. She is having increasing pain on the right side. It radiates down the leg. No red flag symptoms. Physical examination is positive for muscle spasm and paraspinal muscle tenderness. Urine is negative for any acute process. Patient is treated with Toradol, Decadron, Norflex, and lidocaine patch she reports improvement in her symptoms. She is educated on supportive management at home. Follow-up with PCP. Report back to ER with any new or worsening symptoms. Discussed return parameters and answered all questions. Patient conveyed verbal understanding and agreed to the plan. I discussed this case in detail with my attending Dr. Garnett Undiagnosed new problem with uncertain prognosis? @ -No Drug Therapy requiring intensive monitoring for toxicity (Heparin, Nitro, Insulin, Cardizem)? @ -No Were any procedures done? @ -No Diagnosis/symptom? @ -Back pain Acute, or Chronic, or Acute on Chronic? @ -Acute on chronic Uncomplicated (without systemic symptoms) or Complicated (systemic symptoms)? @ -Uncomplicated Side effects of treatment? @ -No Exacerbation, Progression, or Severe Exacerbation? @ -No Poses a threat to life or bodily function? How? (Chest pain, [place], [place], pneumonia, PE, COPD, DKA, ARF, appy, cholecystitis, CVA, Diverticulitis, Homicidal, Suicidal, threat to staff... and all critical care pts) @ -No - Lab Data Lab Results 03/29/23 Range/Units 20:37 Urine Color Yellow Urine Appearance Cloudy H (Clear) Urine pH 6.0 (5.0-8.0) Ur Specific [place] 1.013 (1.001-1.035) Urine Protein Negative (Negative) Urine Glucose (UA) Negative (Negative) Urine Ketones Negative (Negative) Urine Blood Negative (Negative) Urine Nitrite Negative (Negative) Urine Bilirubin Negative (Negative) Urine Urobilinogen <2.0 (<2.0) mg/dL Ur Leukocyte Esterase Negative (Negative) Urine RBC 2 (0-5) /hpf Urine WBC 2 (0-5) /hpf Ur Squamous Epith Cells 1 (0-4) /hpf Hyaline Casts 1 (0-2) /lpf Urine Mucus Few H (None) /hpf Disposition Clinical Impression: Mechanical back pain Disposition: HOME SELF-CARE Condition: Good Instructions (If sedation given, give patient instructions): Chronic Back Pain (DC), Lower Back Exercises (ED) Additional Instructions: Follow-up with PCP. Report back to ER with any new or worsening symptoms. Take medication as prescribed, do not take cyclobenzaprine before driving or operating heavy machinery as it may cause drowsiness. Prescriptions: Cyclobenzaprine [Flexeril] 10 mg PO TID PRN #15 tab PRN Reason: Spasms methylPREDNISolone Dose Pack [Medrol Dose Pack] 4 mg PO DIRECTED #1 packet Is patient prescribed a controlled substance at d/c from ED?: No Referrals: None,Stated [Primary Care Provider] - 1-2 days Time of Disposition: 21:53
[2023-03-29 22:15] VITALS: BP 150/100; PULSE 90; RESP 16
== END 2023-03-29 22:15 | disposition home or self-care (01) ==
LOC: EC 20:01
DX: M54.9 Dorsalgia, unspecified (principal); F32.A Depression, unspecified; K21.9 Gastro-esophageal reflux disease without esophagitis; M19.90 Unspecified osteoarthritis, unspecified site; Z79.1 Long term (current) use of non-steroidal anti-inflammatories (NSAID); Z79.899 Other long term (current) drug therapy; Z88.0 Allergy status to penicillin; Z88.2 Allergy status to sulfonamides
CPT/HCPCS: 81001; 99283; 96372 ×2; J1100; J1885

== ENCOUNTER → 2023-08-09 | Outpatient (CLI) | payer OTHER ==
--- NOTE | 2023-08-09 14:03 | XR ---
EXAMINATION TYPE: XR Hip Complete RT DATE OF EXAM: 08/09/2023 1:59 PM INDICATION: Patient age:Female; 52 years old; Reason for study: M25.551 PAIN IN RIGHT HIP; PHH. COMPARISON: CT abdomen and pelvis 10/14/2019, right femoral radiograph 11/20/2014 TECHNIQUE: The right hip was examined in the frontal and lateral projections . FINDINGS: No evidence of any acute osseous pathology, joint dislocation, or soft tissue swelling. The re is medial joint space narrowing with acetabular sclerosis of the right hip. Few pelvic phlebolith. IMPRESSION: 1. No acute osseous pathology. 2. Mild osteoarthritic changes of the right hip.
== END | disposition home or self-care (01) ==
LOC: RADXRMAIN 13:06
PROVIDERS: ATTEND Internal Medicine
DX: M16.11 Unilateral primary osteoarthritis, right hip (principal)
CPT/HCPCS: 73502

== ENCOUNTER → 2023-08-28 | Outpatient (CLI) | payer OTHER ==
--- NOTE | 2023-08-28 15:00 | US ---
EXAMINATION TYPE: US thyroid st tissue head/neck DATE OF EXAM: 08/28/2023 COMPARISON: 08/23/2016 CLINICAL INDICATION: Female, 52 years old with history of E03.9 HYPOTHYROIDISM; GLAND SIZE: Right Lobe: 4.8 x 1.6 x 2.2 cm Overall Parenchyma: multiple nodules Left Lobe:3.6 x 0.7 x 0.9 cm Overall Parenchyma: homogenous Isthmus Thickness: 0.2 cm NODULES RIGHT: # of nodules measured on right: 4 1. 2.7 X 14 x 1.8 cm Prior size: 2.2 x 1.6 x 1.7 cm TIRADS Score: 4 TIRADS Category 4: Moderately Suspicious Composition: Solid or almost completely solid (2 points). Echogenicity: Hypoechoic (2 points). Shape: Wider than tall (0 points). Margin: Smooth (0 points). Echogenic foci: None or large comet-tail artifacts (0 points) Recommendation: If >1.5cm: FNA; If >1cm: Follow up at 1,2, 3,5 years LEFT: # of nodules measured on left: 0 Bilateral neck scanned, no evidence of lymphadenopathy. IMPRESSION: Right thyroid nodule that meet criteria for fine-needle aspiration if not already performed. No left thyroid nodules.
== END | disposition home or self-care (01) ==
LOC: RADUSWWP 13:07
PROVIDERS: ATTEND Internal Medicine
DX: E03.9 Hypothyroidism, unspecified (principal); E04.2 Nontoxic multinodular goiter
CPT/HCPCS: 76536

== ENCOUNTER → 2023-08-28 | Outpatient (CLI) | payer OTHER ==
--- NOTE | 2023-08-31 07:59 | MM ---
Reason for Exam: Screening (asymptomatic). Last mammogram was performed 2 year(s) and 4 month(s) ago. Patient History: Menarche at age 17. First Full-Term at age 30. Left ovary removed at age 37. Right ovary removed at age 37. Hysterectomy at age 37. Postmenopausal. Excisional Biopsy on the Left side. Risk Values: Shannan 5 year model risk: 1.2%. NCI Lifetime model risk: 10.6%. Prior Study Comparison: 04/30/2021 Bilateral Screening Mammogram, [facility]. Tissue Density: The breast tissue is heterogeneously dense. This may lower the sensitivity of mammography. Findings: Analyzed By CAD. There is no suspicious group of microcalcifications or new suspicious mass in either breast. Biopsy clip within left breast. Overall Assessment: Benign, BI-RAD 2 Management: Screening Mammogram of both breasts in 1 year. A clinical breast exam by your physician is recommended on an annual basis and results should be correlated with mammographic findings. Note on Shannan scores and lifetime risk: 1. A Shannan score greater than 3% is considered moderate risk. If this is the case, consider specialist referral to assess eligibility for a risk reducing agent. If overall lifetime risk for the development of breast cancer is 20% or higher, the patient may qualify for future screening with alternating mammogram and breast MRI. Electronically signed and approved by: Casper Miranda D.O.
== END | disposition home or self-care (01) ==
LOC: RADMAMWWP 13:05
PROVIDERS: ATTEND Internal Medicine
DX: Z12.31 Encounter for screening mammogram for malignant neoplasm of breast (principal); Z78.0 Asymptomatic menopausal state
CPT/HCPCS: 77063; 77067

== ENCOUNTER 2023-09-11 12:58 | Day surgery (SDC) | payer OTHER ==
[2023-09-11] MEDS ORDERED: ALPRAZolam 0.5 MG TAB PO STA (13:30)
--- NOTE | 2023-09-11 14:35 | US ---
ULTRASOUND GUIDED FNA THYROID BIOPSY: CLINICAL HISTORY: Right thyroid nodule FINDINGS: The procedure was explained to the patient. The risks, complications, benefits and alternatives were discussed and any questions were answered. Informed consent was obtained. Patient was placed supin e on the ultrasound table and prepped and draped in the usual sterile fashion. Utilizing a 25 gauge needle, five passes were made into the requested right thyroid nodule. Patient was stable throughout the procedure. Pathology is pending. All elements of maximal barrier technique were utilized. IMPRESSION: 1. Successful ultrasound guided FNA thyroid biopsy.
[2023-09-11 15:17] VITALS: BP 118/68; PULSE 70; RESP 16; TEMP 97.7
== END 2023-09-11 14:35 | disposition home or self-care (01) ==
LOC: RADPROMAIN 12:58
PROVIDERS: ATTEND Internal Medicine
DX: E04.1 Nontoxic single thyroid nodule (principal)
CPT/HCPCS: 10005; 88173; 88305

== ENCOUNTER 2023-09-18 12:24 | Emergency (ER) | payer OTHER ==
[2023-09-18 12:43] VITALS: PULSE 88
[2023-09-18] MEDS ORDERED: ONDANSETRON 4 MG/2 ML VIAL IVP STA (13:45)
[2023-09-18] MEDS ORDERED: SODIUM CHLORIDE 0.9% 1,000 ML IV STA (13:45)
[2023-09-18] MEDS ORDERED: KETOROLAC 15 MG/ML 1 ML VIAL IVP STA (13:45)
--- NOTE | 2023-09-18 13:52 | ED ---
Abdominal Pain HPI - General Chief Complaint: Abdominal Pain Stated Complaint: lower back pain Time Seen by Provider: 09/18/23 13:09 Source: patient Mode of arrival: ambulatory Limitations: no limitations - History of Present Illness Initial Comments: 58-year-old female with a past medical history significant for kidney stone and a surgical history significant for prior hysterectomy and cholecystectomy presenting to the ED with a chief complaint of flank pain. Patient states 2 days ago started to experience left flank pain with associated difficulty urinating and urgency. No dysuria or blood in the urine. Since onset reports pain increasing in severity. Denies chest pain or shortness of breath. No other complaints. - Related Data Home Medications Medication Instructions Recorded Confirmed Celecoxib [CeleBREX] 100 mg PO BID 09/04/23 09/11/23 Ezetimibe [Zetia] 10 mg PO DAILY 09/04/23 09/11/23 FLUoxetine HCL [PROzac] 20 mg PO DAILY 09/04/23 09/11/23 Fenofibrate Nanocrystallized 145 mg PO DAILY 09/04/23 09/11/23 [Tricor] amLODIPine BESYLATE 2.5 mg PO DAILY 09/04/23 09/11/23 Previous Rx's Medication Instructions Recorded Ondansetron Odt [Zofran Odt] 4 mg PO Q8HR PRN #12 tab 09/18/23 Tamsulosin [Flomax] 0.4 mg PO DAILY 30 Days #7 cap 09/18/23 Allergies Allergy/AdvReac Type Severity Reaction Status Date / Time Penicillins Allergy Rash/Hives Verified 09/18/23 12:33 sulfamethoxazole Allergy Unknown Verified 09/18/23 12:33 [From Bactrim] trimethoprim [From Bactrim] Allergy Unknown Verified 09/18/23 12:33 Review of Systems ROS Statement: Those systems with pertinent positive or pertinent negative responses have been documented in the HPI. ROS Other: All systems not noted in ROS Statement are negative. Past Medical History Past Medical History: GERD/Reflux, Hyperlipidemia, Hypertension, Osteoarthritis (OA) Additional Past Medical History / Comment(s): Hx. of migraines. has abd. bloating-pain. hiatal hernia History of Any Multi-Drug Resistant Organisms: None Reported Past Surgical History: Cholecystectomy, Hysterectomy, Orthopedic Surgery Additional Past Surgical History / Comment(s): R hip surgery.EGD AND COLONOSCOPY. Past Anesthesia/Blood Transfusion Reactions: No Reported Reaction Past Psychological History: Depression Smoking Status: Former smoker Past Alcohol Use History: Occasional Past Drug Use History: None Reported - Past Family History Father Family Medical History: Cancer Additional Family Medical History / Comment(s): Kidney Mother Family Medical History: Cancer General Exam Limitations: no limitations General appearance: alert, in no apparent distress Eye exam: Present: normal appearance Neck exam: Present: normal inspection Respiratory exam: Present: normal lung sounds bilaterally Cardiovascular Exam: Present: regular rate, normal rhythm GI/Abdominal exam: Present: soft (No tenderness to palpation. No rebound guarding or rigidity. Left CVA tenderness to percussion.) Neurological exam: Present: alert, oriented X3 Skin exam: Present: warm, dry Course Vital Signs 09/18/23 12:31 Temperature 98.2 F Pulse Rate 88 Respiratory 20 Rate Blood Pressure 142/103 O2 Sat by Pulse 99 Oximetry Medical Decision Making - Medical Decision Making Was pt. sent in by a medical professional or institution (, PA, IMMIGRATION INSPECTOR, urgent care, hospital, or jail...) When possible be specific @ -No Did you speak to anyone other than the patient for history (EMS, parent, family, police, friend...)? What history was obtained from this source @ -No Did you review nursing and triage notes (agree or disagree)? Why? @ -I reviewed and agree with nursing and triage notes Were old charts reviewed (outside hosp., previous admission, EMS record, old EKG, old radiological studies, urgent care reports/EKG's, jail records)? Report findings @ -Old charts reviewed showing history kidney stone Differential Diagnosis (chest pain, altered mental status, abdominal pain women, abdominal pain men, vaginal bleeding, weakness, fever, dyspnea, syncope, headache, dizziness, GI bleed, back pain, seizure, CVA, palpatations, mental health, musculoskeletal)? @ -Differential Abdominal Pain Women: Appendicitis, Cholecystitis, diverticulosis, ischemic bowel, pancreatitis, hepatitis, UTI, gastroenteritis, AAA, incarcerated hernia, bowel obstruction, constipation, inflammatory bowel, hepatitis, peptic ulcer disease, splenic infarction, perforated viscus, vulvitis, ovarian torsion, PID, kidney stone, placenta abruption, this is not meant to be an all-inclusive list EKG interpreted by me (3pts min.). @ -None X-rays interpreted by me (1pt min.). @ -None done CT interpreted by me (1pt min.). @ -CT interpreted by me showing obstructive left 3 mm stone at renal pelvis with hydronephrosis. No other acute findings. U/S interpreted by me (1pt. min.). @ -None done What testing was considered but not performed or refused? (CT, X-rays, U/S, labs)? Why? @ -None What meds were considered but not given or refused? Why? @ -None Did you discuss the management of the patient with other professionals (professionals i.e. , PA, IMMIGRATION INSPECTOR, lab, RT, psych nurse, social services, property man, teacher, chief supply chain officer, case reviewer)? Give summary @ -No Was smoking cessation discussed for >3mins.? @ -No Was critical care preformed (if so, how long)? @ -No Were there social determinants of health that impacted care today? How? (Homelessness, low income, unemployed, alcoholism, drug addiction, transportation, low edu. Level, literacy, decrease access to med. care, skilled nursing, rehab)? @ -No Was there de-escalation of care discussed even if they declined (Discuss DNR or withdrawal of care, Hospice)? DNR status @ -No What co-morbidities impacted this encounter? (DM, HTN, Smoking, COPD, CAD, Cancer, CVA, ARF, Chemo, Hep., AIDS, mental health diagnosis, sleep apnea, morbid obesity)? @ -None Was patient admitted / discharged? Hospital course, mention meds given and route, prescriptions, significant lab abnormalities, going to OR and other [facility] info. @ -Discharge 52-year-old female presenting to the ED with 2 days of flank pain with difficulty urinating. CBC unremarkable. Chemistry panel largely unremarkable. Urine did show moderate leukocyte esterase, 13 red blood cells, 19 white blood cells, 16, cells, and occasional bacteria. CT did show obstructive left 3 mm stone. At this time, symptoms well controlled with Toradol and Zofran area and patient discharged home with prescription for Tylenol 3, Zofran, Flomax and provided a strainer. Advised follow-up with PCP. Discussed return precautions with patient who verbalizes agreement. Undiagnosed new problem with uncertain prognosis? @ -No Drug Therapy requiring intensive monitoring for toxicity (Heparin, Nitro, Insulin, Cardizem)? @ -No Were any procedures done? @ -No Diagnosis/symptom? @ -Left 3 mm obstructing stone Acute, or Chronic, or Acute on Chronic? @ -Acute Uncomplicated (without systemic symptoms) or Complicated (systemic symptoms)? @ -Uncomplicated Side effects of treatment? @ -No Exacerbation, Progression, or Severe Exacerbation? @ -No Poses a threat to life or bodily function? How? (Chest pain, [place], [place], pneumonia, PE, COPD, DKA, ARF, appy, cholecystitis, CVA, Diverticulitis, Homicidal, Suicidal, threat to staff... and all critical care pts) @ -No - Lab Data Result diagrams: 09/18/23 14:02 09/18/23 14:02 Lab Results 09/18/23 09/18/23 09/18/23 Range/Units 14:02 14:02 14:02 WBC 7.9 (3.8-10.6) k/uL RBC 4.95 (3.80-5.40) m/uL Hgb 14.5 (11.4-16.0) gm/dL Hct 43.9 (34.0-46.0) % MCV 88.7 (80.0-100.0) fL MCH 29.3 (25.0-35.0) pg MCHC 33.0 (31.0-37.0) g/dL RDW 13.0 (11.5-15.5) % Plt Count 319 (150-450) k/uL MPV 8.0 Neutrophils % 71 % Lymphocytes % 21 % Monocytes % 4 % Eosinophils % 2 % Basophils % 1 % Neutrophils # 5.7 (1.3-7.7) k/uL Lymphocytes # 1.6 (1.0-4.8) k/uL Monocytes # 0.3 (0-1.0) k/uL Eosinophils # 0.2 (0-0.7) k/uL Basophils # 0.0 (0-0.2) k/uL Sodium 143 (137-145) mmol/L Potassium 3.9 (3.5-5.1) mmol/L Chloride 108 H (98-107) mmol/L Carbon Dioxide 23 (22-30) mmol/L Anion Gap 12 mmol/L BUN 16 (7-17) mg/dL Creatinine 0.58 (0.52-1.04) mg/dL Est GFR (CKD-EPI)AfAm >90 (>60 ml/min/1.73 sqM) Est GFR (CKD-EPI)NonAf >90 (>60 ml/min/1.73 sqM) Glucose 88 (74-99) mg/dL Calcium 9.8 (8.4-10.2) mg/dL Total Bilirubin 0.8 (0.2-1.3) mg/dL AST 64 H (14-36) U/L ALT 52 H (4-34) U/L Alkaline Phosphatase 85 (38-126) U/L Total Protein 7.6 (6.3-8.2) g/dL Albumin 4.6 (3.5-5.0) g/dL Amylase 59 (30-110) U/L Lipase 106 (23-300) U/L Urine Color Yellow Urine Appearance Cloudy H (Clear) Urine pH 6.0 (5.0-8.0) Ur Specific [place] 1.017 (1.001-1.035) Urine Protein Trace H (Negative) Urine Glucose (UA) Negative (Negative) Urine Ketones Negative (Negative) Urine Blood Negative (Negative) Urine Nitrite Negative (Negative) Urine Bilirubin Negative (Negative) Urine Urobilinogen <2.0 (<2.0) mg/dL Ur Leukocyte Esterase Moderate H (Negative) Urine RBC 13 H (0-5) /hpf Urine WBC 19 H (0-5) /hpf Ur Squamous Epith Cells 16 H (0-4) /hpf Urine Bacteria Occasional H (None) /hpf Urine Mucus Many H (None) /hpf Disposition Clinical Impression: Kidney stone Disposition: HOME SELF-CARE Condition: Good Instructions (If sedation given, give patient instructions): Kidney Stones (ED), How to Strain Your Urine (ED) Additional Instructions: Please return to the Emergency Department if symptoms worsen or any other concerns. Follow up with your primary care provider. Prescriptions: Tamsulosin [Flomax] 0.4 mg PO DAILY 30 Days #7 cap Ondansetron Odt [Zofran Odt] 4 mg PO Q8HR PRN #12 tab PRN Reason: Nausea Is patient prescribed a controlled substance at d/c from ED?: No Referrals: Lamine Sage MD [Primary Care Provider] - 1-2 days Time of Disposition: 15:33
[2023-09-18 14:09] LABS: Basophils % (A) 1 %; Eosinophils # (A) 0.2 k/uL (0-0.7); Eosinophils % (A) 2 %; HCT 43.9 % (34.0-46.0); HGB 14.5 gm/dL (11.4-16.0); Lymphocytes # (A) 1.6 k/uL (1.0-4.8); Lymphocytes % (A) 21 %; MCH 29.3 pg (25.0-35.0); MCV 88.7 fL (80.0-100.0); Monocytes # (A) 0.3 k/uL (0-1.0); Monocytes % (A) 4 %; Neutrophils # (A) 5.7 k/uL (1.3-7.7); Neutrophils % (A) 71 %; Platelet Count 319 k/uL (150-450); RBC 4.95 m/uL (3.80-5.40); WBC 7.9 k/uL (3.8-10.6)
[2023-09-18 14:25] LABS: ALT 52 U/L (4-34); AST 64 U/L (14-36); African American GFR (CKD) >90 (>60 ml/min/1.73 sqM); Albumin 4.6 g/dL (3.5-5.0); Alkaline Phosphatase 85 U/L (38-126); Amylase 59 U/L (30-110); Anion Gap 12 mmol/L; Blood Urea Nitrogen 16 mg/dL (7-17); Calcium 9.8 mg/dL (8.4-10.2); Carbon Dioxide 23 mmol/L (22-30); Chloride 108 mmol/L (98-107); Glucose 88 mg/dL (74-99); Lipase 106 U/L (23-300); Non-African American GFR(CKD) >90 (>60 ml/min/1.73 sqM); Potassium 3.9 mmol/L (3.5-5.1); Sodium 143 mmol/L (137-145); Total Bilirubin 0.8 mg/dL (0.2-1.3); Total Protein 7.6 g/dL (6.3-8.2)
[2023-09-18 14:42] LABS: Appearance,Urine Cloudy (Clear); Bacteria,Urine Occasional /hpf; Bilirubin,Urine Negative (Negative); Blood,Urine Negative (Negative); Color,Urine Yellow; Glucose,Urine (UA) Negative (Negative); Ketones,Urine Negative (Negative); Leukocyte Esterase,Urine Moderate (Negative); Mucus,Urine Many /hpf; Nitrite,Urine Negative (Negative); Protein,Urine Trace (Negative); RBC,Urine 13 /hpf (0-5); Specific Gravity,Urine 1.017 (1.001-1.035); Squamous Epithelial Cell,Urine 16 /hpf (0-4); Urobilinogen,Urine <2.0 mg/dL (<2.0); WBC,Urine 19 /hpf (0-5)
--- NOTE | 2023-09-18 15:03 | CT ---
EXAMINATION TYPE: CT abdomen pelvis wo con DATE OF EXAM: 09/18/2023 COMPARISON: 10/14/2019 HISTORY: left flank pain CT DLP: 459.3 mGycm Automated exposure control for dose reduction was used. TECHNIQUE: Helical acquisition of images was performed from the lung bases through the pelvis. FINDINGS: LUNG BASES: Trace of pericardial fluid. LIVER/GB: Diffuse low attenuation in the liver compatible hepatic steatosis. Postcholecystectomy tong ges. PANCREAS: No significant abnormality is seen. SPLEEN: No significant abnormality is seen. ADRENALS: No significant abnormality is seen. KIDNEYS: Mild left hydronephrosis. There is a duplicated left collecting system with a punctate mid pole calcu oli. Within the renal pelvis there is a 3 mm calcification. There are 2 approximately 1 to 2 mm punctate mid pole right renal calculi. FREE AIR: No free air is visualized URINARY BLADDER: Limited by incomplete distention ADENOPATHY: None visualized. OSSEOUS STRUCTURES: No significant abnormality is seen. BOWEL: No evidence of obstruction. OTHER: Aorta normal caliber with mild atherosclerotic changes. Trace amount of free fluid in the pelv is. IMPRESSION: 1. BILATERAL NEPHROLITHIASIS WITH MILD LEFT HYDRONEPHROSIS SECONDARY TO A 3 MM LEFT RENAL PELVIC CALC IFICATION. 2. HEPATOMEGALY WITH HEPATIC STEATOSIS.
[2023-09-18 16:02] VITALS: BP 152/80; RESP 18; TEMP 98.1
== END 2023-09-18 15:44 | disposition home or self-care (01) ==
LOC: EC 12:24
DX: N13.2 Hydronephrosis with renal and ureteral calculous obstruction (principal); K76.0 Fatty (change of) liver, not elsewhere classified; I10 Essential (primary) hypertension; M19.90 Unspecified osteoarthritis, unspecified site; Z86.59 Personal history of other mental and behavioral disorders; Z87.891 Personal history of nicotine dependence; Z79.1 Long term (current) use of non-steroidal anti-inflammatories (NSAID); Z79.899 Other long term (current) drug therapy; Z88.0 Allergy status to penicillin; Z88.2 Allergy status to sulfonamides
CPT/HCPCS: 36415; 80053; 82150; 83690; 85025; 81001; 87086; 74176; 99284; 96374; 96375; 96361; J2405; J1885

== ENCOUNTER → 2024-04-11 | Outpatient (CLI) | payer OTHER ==
--- NOTE | 2024-04-11 11:53 | XR ---
EXAMINATION TYPE: XR elbow complete 3 views LT, XR forearm 2 views LT DATE OF EXAM: 04/11/2024 COMPARISON: NONE HISTORY: 53-year-old female twisting injury at work with pain, S53.402A elbow contusion FINDINGS: Elbow: No joint effusion. Tiny spur at the coronoid process. No acute fracture, subluxation, dislocation see n. Forearm: There appears to be negative ulnar variance with deepening of the sigmoid notch of the distal radius. Otherwise, no acute fracture, subluxation, dislocation is seen. IMPRESSION: 1. Elbow: No acute osseous abnormality seen. 2. Forearm: There seems to be negative ulnar variance and deepening of the sigmoid notch at the DRUJ. Correlate for any chronic ulnar-sided wrist pain that would relate to ulnar impingement syndrome. Ot herwise, no acute osseous abnormality seen.
== END | disposition home or self-care (01) ==
LOC: RADXRMAIN 10:50
PROVIDERS: ATTEND Emergency Medicine
DX: S56.812A Strain of other muscles, fascia and tendons at forearm level, left arm, initial encounter (principal); S53.402A Unspecified sprain of left elbow, initial encounter

== ENCOUNTER → 2024-04-15 | Outpatient (CLI) | payer OTHER ==
--- NOTE | 2024-04-15 12:04 | XR ---
EXAMINATION TYPE: XR shoulder complete LT DATE OF EXAM: 04/15/2024 CLINICAL HISTORY: pain COMPARISON: NONE TECHNIQUE: Three views of the left shoulder are obtained. FINDINGS: There is no acute fracture/dislocation evident. The acromioclavicular and glenohumeral pastora int spaces appear within normal limits. The visualized ribs are intact and unremarkable. IMPRESSION: 1. There is no acute fracture or dislocation. ICD 10 NO FRACTURE, INITIAL EVALUATION
--- NOTE | 2024-04-15 12:05 | XR ---
EXAMINATION TYPE: XR cervical spine comp DATE OF EXAM: 04/15/2024 CLINICAL HISTORY: pain COMPARISON: NONE TECHNIQUE: Frontal, lateral, oblique, swimmers, and open mouth view of the cervical spine are obtaine d. FINDINGS: The cervical spine is visualized in its entirety from C1 thru the top of T1 level. It is s atisfactory in alignment without evidence of acute fracture or dislocation. The pre-vertebral soft t issue appears within normal limits. Moderate degenerative disc space narrowing at C5-6 and C6-7. The C1-C2 articulation is unremarkable on the open mouth view. The oblique images are within normal limi ts. IMPRESSION: No acute fracture or dislocation is seen in the cervical spine.ICD 10 NO FRACTURE, INITI AL EVALUATION
== END | disposition home or self-care (01) ==
LOC: RADXRMAIN 11:23
PROVIDERS: ATTEND Emergency Medicine
DX: S46.912A Strain of unspecified muscle, fascia and tendon at shoulder and upper arm level, left arm, initial encounter (principal); R20.9 Unspecified disturbances of skin sensation
CPT/HCPCS: 72050

== ENCOUNTER 2024-05-30 18:05 | Emergency (ER) | payer OTHER ==
[2024-05-30 18:16] VITALS: RESP 16
--- NOTE | 2024-05-30 19:45 | ED ---
Back Pain HPI - General Chief Complaint: Back Pain/Injury Stated Complaint: sciatic pain/cramping tummy Time Seen by Provider: 05/30/24 19:42 Source: patient, RN notes reviewed Limitations: no limitations - History of Present Illness Initial Comments: 53-year-old female presenting with abdominal pain x 1 day. States she woke up this morning with a burning sensation in her lower abdomen. Admits her stools are loose, however denies vomiting, dysuria, fever, chills. She is able to tolerate orals well. She has a history of a hysterectomy and cholecystectomy. She also reports some right-sided back pain. Denies numbness, tingling, or weakness of the lower extremities. Denies loss of bowel or bladder control. - Related Data Home Medications Medication Instructions Recorded Confirmed Celecoxib [CeleBREX] 100 mg PO BID 09/04/23 09/11/23 Ezetimibe [Zetia] 10 mg PO DAILY 09/04/23 09/11/23 FLUoxetine HCL [PROzac] 20 mg PO DAILY 09/04/23 09/11/23 Fenofibrate Nanocrystallized 145 mg PO DAILY 09/04/23 09/11/23 [Tricor] amLODIPine BESYLATE 2.5 mg PO DAILY 09/04/23 09/11/23 Previous Rx's Medication Instructions Recorded Ondansetron Odt [Zofran Odt] 4 mg PO Q8HR PRN #12 tab 09/18/23 Tamsulosin [Flomax] 0.4 mg PO DAILY 30 Days #7 cap 09/18/23 Allergies Allergy/AdvReac Type Severity Reaction Status Date / Time Penicillins Allergy Rash/Hives Verified 09/18/23 12:33 sulfamethoxazole Allergy Unknown Verified 09/18/23 12:33 [From Bactrim] trimethoprim [From Bactrim] Allergy Unknown Verified 09/18/23 12:33 Review of Systems ROS Statement: Those systems with pertinent positive or pertinent negative responses have been documented in the HPI. ROS Other: All systems not noted in ROS Statement are negative. Past Medical History Past Medical History: GERD/Reflux, Hyperlipidemia, Hypertension, Osteoarthritis (OA) Additional Past Medical History / Comment(s): Hx. of migraines. has abd. bloating-pain. hiatal hernia History of Any Multi-Drug Resistant Organisms: None Reported Past Surgical History: Cholecystectomy, Hysterectomy, Orthopedic Surgery Additional Past Surgical History / Comment(s): R hip surgery.EGD AND COLONOSCOPY . Past Anesthesia/Blood Transfusion Reactions: No Reported Reaction Past Psychological History: Depression Smoking Status: Former smoker Past Alcohol Use History: Occasional Past Drug Use History: None Reported - Past Family History Father Family Medical History: Cancer Additional Family Medical History / Comment(s): Kidney Mother Family Medical History: Cancer General Exam Limitations: no limitations General appearance: alert, in no apparent distress Head exam: Present: atraumatic, normocephalic, normal inspection Eye exam: Present: normal appearance, PERRL, EOMI. Absent: scleral icterus, conjunctival injection, periorbital swelling Respiratory exam: Present: normal lung sounds bilaterally. Absent: respiratory distress, wheezes, rales, rhonchi, stridor Cardiovascular Exam: Present: regular rate, normal rhythm, normal heart sounds. Absent: systolic murmur, diastolic murmur, rubs, gallop, clicks GI/Abdominal exam: Present: soft, normal bowel sounds. Absent: distended, tenderness, guarding, rebound, rigid Back exam: Absent: CVA tenderness (R), CVA tenderness (L) Neurological exam: Present: alert, oriented X3 Psychiatric exam: Present: normal affect, normal mood Skin exam: Present: warm, dry, intact, normal color. Absent: rash Course Vital Signs 05/30/24 18:14 Temperature 98.4 F Pulse Rate 83 Respiratory 16 Rate Blood Pressure 147/97 O2 Sat by Pulse 98 Oximetry Medical Decision Making - Medical Decision Making Was pt. sent in by a medical professional or institution (, PA, BRICK EXTRUDER OPERATOR, urgent care, hospital, or usp...) When possible be specific @ -No Did you speak to anyone other than the patient for history (EMS, parent, family, police, friend...)? What history was obtained from this source @ -No Did you review nursing and triage notes (agree or disagree)? Why? @ -I reviewed and agree with nursing and triage notes Were old charts reviewed (outside hosp., previous admission, EMS record, old EKG, old radiological studies, urgent care reports/EKG's, usp records)? Report findings @ -No old charts were reviewed Differential Diagnosis (chest pain, altered mental status, abdominal pain women, abdominal pain men, vaginal bleeding, weakness, fever, dyspnea, syncope, headache, dizziness, GI bleed, back pain, seizure, CVA, palpatations, mental health, musculoskeletal)? @ -Differential Abdominal Pain Women: Appendicitis, Cholecystitis, diverticulosis, ischemic bowel, pancreatitis, hepatitis, UTI, gastroenteritis, AAA, incarcerated hernia, bowel obstruction, constipation, inflammatory bowel, hepatitis, peptic ulcer disease, splenic infarction, perforated viscus, vulvitis, ovarian torsion, PID, kidney stone, placenta abruption, this is not meant to be an all-inclusive list EKG interpreted by me (3pts min.). @ -None X-rays interpreted by me (1pt min.). @ -None done CT interpreted by me (1pt min.). @ -CT reveals obstructive 5 mm calculus within the distal right ureter with associated mild right hydroureternephrosis. Similar hepatomegaly and hepatic steatosis U/S interpreted by me (1pt. min.). @ -None done What testing was considered but not performed or refused? (CT, X-rays, U/S, labs)? Why? @ -None What meds were considered but not given or refused? Why? @ -None Did you discuss the management of the patient with other professionals (professionals i.e. , PA, BRICK EXTRUDER OPERATOR, lab, RT, psych nurse, forensic social worker, caisson worker, teacher, security public safety officer, case loader operator)? Give summary @ -No Was smoking cessation discussed for >3mins.? @ -No Was critical care preformed (if so, how long)? @ -No Were there social determinants of health that impacted care today? How? (Homelessness, low income, unemployed, alcoholism, drug addiction, transportation, low edu. Level, literacy, decrease access to med. care, skilled nursing, rehab)? @ -No Was there de-escalation of care discussed even if they declined (Discuss DNR or withdrawal of care, Hospice)? DNR status @ -No What co-morbidities impacted this encounter? (DM, HTN, Smoking, COPD, CAD, Cancer, CVA, ARF, Chemo, Hep., AIDS, mental health diagnosis, sleep apnea, morbi d obesity)? @ -None Was patient admitted / discharged? Hospital course, mention meds given and route , prescriptions, significant lab abnormalities, going to OR and other pertinent info. @ -Patient was discharged. Patient was seen and evaluated for lower abdominal pain x 1 day. No red flag symptoms, patient is tolerating orals well. Vital signs and physical examination is unremarkable. Patient was given IV fluids and Toradol. Lab work including CBC, CMP, lactic acid was unremarkable. Revealed large amount of blood and 8 white blood cells. Urine culture sent. CT of abdomen pelvis was then ordered which revealed obstructive 5 mm calculus within the distal right ureter with associated mild right hydroureteronephrosis. Upon reevaluation, patient's pain is controlled. Discussed diagnosis of kidney stone with patient. Advised urology follow-up. Return precautions discussed with patient and she shows understanding agrees with plan. Case was discussed with my ED attending Dr. Garnett. Patient discharged in stable condition. Undiagnosed new problem with uncertain prognosis? @ -No Drug Therapy requiring intensive monitoring for toxicity (Heparin, Nitro, Insulin, Cardizem)? @ -No Were any procedures done? @ -No Diagnosis/symptom? @ -Right nephrolithiasis Acute, or Chronic, or Acute on Chronic? @ -Acute Uncomplicated (without systemic symptoms) or Complicated (systemic symptoms)? @ -Uncomplicated Side effects of treatment? @ -No Exacerbation, Progression, or Severe Exacerbation? @ -No Poses a threat to life or bodily function? How? (Chest pain, USA, AL, pneumonia, PE, COPD, DKA, ARF, appy, cholecystitis, CVA, Diverticulitis, Homicidal, Suicidal, threat to staff... and all critical care pts) @ -No - Lab Data Result diagrams: 05/30/24 19:46 05/30/24 19:46 Lab Results 05/30/24 05/30/24 05/30/24 Range/Units 19:46 19:46 19:46 WBC 6.6 (3.8-10.6) k/uL RBC 5.15 (3.80-5.40) m/uL Hgb 14.6 (11.4-16.0) gm/dL Hct 45.9 (34.0-46.0) % MCV 89.2 (80.0-100.0) fL MCH 28.4 (25.0-35.0) pg MCHC 31.9 (31.0-37.0) g/dL RDW 12.7 (11.5-15.5) % Plt Count 345 (150-450) k/uL MPV 7.8 Neutrophils % 65 % Lymphocytes % 26 % Monocytes % 5 % Eosinophils % 3 % Basophils % 1 % Neutrophils # 4.3 (1.3-7.7) k/uL Lymphocytes # 1.7 (1.0-4.8) k/uL Monocytes # 0.3 (0-1.0) k/uL Eosinophils # 0.2 (0-0.7) k/uL Basophils # 0.1 (0-0.2) k/uL Sodium 141 (137-145) mmol/L Potassium 4.1 (3.5-5.1) mmol/L Chloride 109 H (98-107) mmol/L Carbon Dioxide 26 (22-30) mmol/L Anion Gap 6 mmol/L BUN 18 H (7-17) mg/dL Creatinine 0.54 (0.52-1.04) mg/dL Est GFR (CKD-EPI)AfAm >90 (>60 ml/min/1.73 sqM) Est GFR (CKD-EPI)NonAf >90 (>60 ml/min/1.73 sqM) Glucose 89 (74-99) mg/dL Plasma Lactic Acid Rufus 0.8 (0.7-2.0) mmol/L Calcium 9.9 (8.4-10.2) mg/dL Total Bilirubin 0.5 (0.2-1.3) mg/dL AST 31 (14-36) U/L ALT 23 (4-34) U/L Alkaline Phosphatase 119 (38-126) U/L Total Protein 7.1 (6.3-8.2) g/dL Albumin 4.6 (3.5-5.0) g/dL Urine Color Urine Appearance (Clear) Urine pH (5.0-8.0) Ur Specific Wil[place] (1.001-1.035) Urine Protein (Negative) Urine Glucose (UA) (Negative) Urine Ketones (Negative) Urine Blood (Negative) Urine Nitrite (Negative) Urine Bilirubin (Negative) Urine Urobilinogen (<2.0) mg/dL Ur Leukocyte Esterase (Negative) Urine RBC (0-5) /hpf Urine WBC (0-5) /hpf Ur Squamous Epith Cells (0-4) /hpf Calcium Oxalate Crystal (None) /hpf Amorphous Sediment (None) /hpf Urine Bacteria (None) /hpf Urine Mucus (None) /hpf 05/30/24 Range/Units 19:49 WBC (3.8-10.6) k/uL RBC (3.80-5.40) m/uL Hgb (11.4-16.0) gm/dL Hct (34.0-46.0) % MCV (80.0-100.0) fL MCH (25.0-35.0) pg MCHC (31.0-37.0) g/dL RDW (11.5-15.5) % Plt Count (150-450) k/uL MPV Neutrophils % % Lymphocytes % % Monocytes % % Eosinophils % % Basophils % % Neutrophils # (1.3-7.7) k/uL Lymphocytes # (1.0-4.8) k/uL Monocytes # (0-1.0) k/uL Eosinophils # (0-0.7) k/uL Basophils # (0-0.2) k/uL Sodium (137-145) mmol/L Potassium (3.5-5.1) mmol/L Chloride (98-107) mmol/L Carbon Dioxide (22-30) mmol/L Anion Gap mmol/L BUN (7-17) mg/dL Creatinine (0.52-1.04) mg/dL Est GFR (CKD-EPI)AfAm (>60 ml/min/1.73 sqM) Est GFR (CKD-EPI)NonAf (>60 ml/min/1.73 sqM) Glucose (74-99) mg/dL Plasma Lactic Acid Rufus (0.7-2.0) mmol/L Calcium (8.4-10.2) mg/dL Total Bilirubin (0.2-1.3) mg/dL AST (14-36) U/L ALT (4-34) U/L Alkaline Phosphatase (38-126) U/L Total Protein (6.3-8.2) g/dL Albumin (3.5-5.0) g/dL Urine Color Light Yellow Urine Appearance Cloudy H (Clear) Urine pH 6.5 (5.0-8.0) Ur Specific [place] 1.014 (1.001-1.035) Urine Protein Negative (Negative) Urine Glucose (UA) Negative (Negative) Urine Ketones Negative (Negative) Urine Blood Large H (Negative) Urine Nitrite Negative (Negative) Urine Bilirubin Negative (Negative) Urine Urobilinogen <2.0 (<2.0) mg/dL Ur Leukocyte Esterase Small H (Negative) Urine RBC >182 H (0-5) /hpf Urine WBC 8 H (0-5) /hpf Ur Squamous Epith Cells 1 (0-4) /hpf Calcium Oxalate Crystal Occasional H (None) /hpf Amorphous Sediment Rare H (None) /hpf Urine Bacteria Occasional H (None) /hpf Urine Mucus Rare H (None) /hpf Disposition Clinical Impression: Right nephrolithiasis Disposition: HOME SELF-CARE Condition: Stable Instructions (If sedation given, give patient instructions): Kidney Stones (ED) Additional Instructions: Hydrate aggressively. Follow-up with urology. Please return to the Emergency Department if symptoms worsen or any other concerns. Is patient prescribed a controlled substance at d/c from ED?: No Referrals: [place] DO [Primary Care Provider] - 1-2 days Michel Viveros MD [STAFF PHYSICIAN] - 1-2 days Time of Disposition: 23:09
[2024-05-30] MEDS: SODIUM CHLORIDE 0.9% 1,000 ML IV STA (19:49)
[2024-05-30] MEDS: KETOROLAC 15 MG/ML 1 ML VIAL IVP STA (19:54)
[2024-05-30 20:11] LABS: Basophils # (A) 0.1 k/uL (0-0.2); Basophils % (A) 1 %; Eosinophils # (A) 0.2 k/uL (0-0.7); Eosinophils % (A) 3 %; HCT 45.9 % (34.0-46.0); HGB 14.6 gm/dL (11.4-16.0); Lymphocytes # (A) 1.7 k/uL (1.0-4.8); Lymphocytes % (A) 26 %; MCH 28.4 pg (25.0-35.0); MCHC 31.9 g/dL (31.0-37.0); MCV 89.2 fL (80.0-100.0); Mean Platelet Volume 7.8; Monocytes # (A) 0.3 k/uL (0-1.0); Monocytes % (A) 5 %; Neutrophils # (A) 4.3 k/uL (1.3-7.7); Neutrophils % (A) 65 %; Platelet Count 345 k/uL (150-450); RBC 5.15 m/uL (3.80-5.40); RDW 12.7 % (11.5-15.5); WBC 6.6 k/uL (3.8-10.6)
[2024-05-30 20:25] LABS: Amorphous Sediment,Urine Rare /hpf; Appearance,Urine Cloudy (Clear); Bacteria,Urine Occasional /hpf; Bilirubin,Urine Negative (Negative); Blood,Urine Large (Negative); Calcium Oxalate Crystals,Urine Occasional /hpf; Color,Urine Light Yellow; Glucose,Urine (UA) Negative (Negative); Ketones,Urine Negative (Negative); Leukocyte Esterase,Urine Small (Negative); Mucus,Urine Rare /hpf; Nitrite,Urine Negative (Negative); PH, Urine 6.5 (5.0-8.0); Protein,Urine Negative (Negative); RBC,Urine >182 /hpf (0-5); Specific Gravity,Urine 1.014 (1.001-1.035); Squamous Epithelial Cell,Urine 1 /hpf (0-4); Urobilinogen,Urine <2.0 mg/dL (<2.0); WBC,Urine 8 /hpf (0-5)
[2024-05-30 20:43] LABS: ALT 23 U/L (4-34); AST 31 U/L (14-36); African American GFR (CKD) >90 (>60 ml/min/1.73 sqM); Albumin 4.6 g/dL (3.5-5.0); Alkaline Phosphatase 119 U/L (38-126); Anion Gap 6 mmol/L; Blood Urea Nitrogen 18 mg/dL (7-17); Calcium 9.9 mg/dL (8.4-10.2); Carbon Dioxide 26 mmol/L (22-30); Chloride 109 mmol/L (98-107); Glucose 89 mg/dL (74-99); Non-African American GFR(CKD) >90 (>60 ml/min/1.73 sqM); Potassium 4.1 mmol/L (3.5-5.1); Sodium 141 mmol/L (137-145); Total Bilirubin 0.5 mg/dL (0.2-1.3); Total Protein 7.1 g/dL (6.3-8.2)
--- NOTE | 2024-05-30 22:52 | CT ---
EXAMINATION TYPE: CT abdomen pelvis wo con CT DLP: 461 mGycm, Automated exposure control for dose reduction was used. DATE OF EXAM: 05/30/2024 9:18 PM COMPARISON: CT abdomen pelvis most recent from CLINICAL INDICATION:Female, 53 years old with history of flank pain, kidney stone suspected; Rt side flank pain. TECHNIQUE: Axial CT abdomen pelvis wo con;Sagittal and coronal reformats were created on a separate workstation. Contrast used: mL of , (none if empty) Oral contrast used: without Oral Contrast (none if empty) FINDINGS: LOWER CHEST: Unremarkable ABDOMEN LIVER: Diffusely hypoattenuating parenchyma. The liver is again seen mildly enlarged measuring up to 17.0 cm in craniocaudal dimension. GALLBLADDER AND BILE DUCTS: The gallbladder is surgically absent. PANCREAS: Unremarkable. SPLEEN: Unremarkable. ADRENAL GLANDS: Unremarkable. KIDNEYS AND URETERS: There is a obstructive 5 mm calculus seen within the distal right ureter with as sociated mild right hydroureteronephrosis. No additional right renal calculi are seen. There is redem onstrated lobular contour of the right kidney similar to prior studies. No left renal calculus or lef t hydronephrosis. The left ureter is grossly unremarkable. PELVIS BLADDER: Incompletely distended and grossly unremarkable. REPRODUCTIVE: No pelvic masses. ABDOMEN & PELVIS STOMACH AND BOWEL: The stomach is grossly unremarkable. Small bowel is of normal caliber. No evidence of bowel obstruction. PERITONEUM/RETROPERITONEUM: No evidence of pneumoperitoneum or free fluid. VASCULATURE: No evidence of aortic aneurysm. MUSCULOSKELETAL: No acute osseous abnormalities LYMPH NODES: No gross evidence for lymphadenopathy. SOFT TISSUE/ABDOMINAL WALL: Unremarkable IMPRESSION: 1. Obstructive 5 mm calculus within the distal right ureter with associated mild right hydroureteron ephrosis. 2. Similar hepatomegaly and hepatic steatosis.
[2024-05-30 23:32] VITALS: BP 132/84; PULSE 78; TEMP 98.5
== END 2024-05-30 23:31 | disposition home or self-care (01) ==
LOC: EC 18:05
DX: N13.2 Hydronephrosis with renal and ureteral calculous obstruction (principal); Z87.891 Personal history of nicotine dependence; Z88.0 Allergy status to penicillin; Z88.1 Allergy status to other antibiotic agents; Z88.2 Allergy status to sulfonamides; Z90.49 Acquired absence of other specified parts of digestive tract
CPT/HCPCS: 36415; 80053; 83605; 85025; 81001; 74176; 99284; 96374; 96361; J1885

== ENCOUNTER 2024-12-07 19:38 | Emergency (ER) | payer OTHER ==
[2024-12-07 19:43] VITALS: BP 159/108; PULSE 107; RESP 18; TEMP 98.4
--- NOTE | 2024-12-07 19:55 | ED ---
Skin/Abscess/FB HPI - General Chief complaint: Skin/Abscess/Foreign Body Stated complaint: rash on neck Time Seen by Provider: 12/07/24 19:43 Source: patient Mode of arrival: ambulatory Limitations: no limitations - History of Present Illness Initial comments: 54-year-old female presenting to the emergency department for complaint of rash to her anterior neck that developed over the last day. States that the area has been mildly pruritic and is concerned that she may have been bit by a bug. She denies difficulty in swallowing, difficulty breathing, fevers, chills, nausea, vomiting. Denies previous similar reactions. Denies use of new soaps, lotions, detergents, perfumes. - Related Data Home Medications Medication Instructions Recorded Confirmed Celecoxib [CeleBREX] 100 mg PO BID 09/04/23 09/11/23 Ezetimibe [Zetia] 10 mg PO DAILY 09/04/23 09/11/23 FLUoxetine HCL [PROzac] 20 mg PO DAILY 09/04/23 09/11/23 Fenofibrate Nanocrystallized 145 mg PO DAILY 09/04/23 09/11/23 [Tricor] amLODIPine BESYLATE 2.5 mg PO DAILY 09/04/23 09/11/23 Previous Rx's Medication Instructions Recorded Ondansetron Odt [Zofran Odt] 4 mg PO Q8HR PRN #12 tab 09/18/23 Tamsulosin [Flomax] 0.4 mg PO DAILY 30 Days #7 cap 09/18/23 Allergies Allergy/AdvReac Type Severity Reaction Status Date / Time Penicillins Allergy Rash/Hives Verified 12/07/24 19:43 sulfamethoxazole Allergy Unknown Verified 12/07/24 19:43 [From Bactrim] trimethoprim [From Bactrim] Allergy Unknown Verified 12/07/24 19:43 Review of Systems ROS Statement: Those systems with pertinent positive or pertinent negative responses have been documented in the HPI. ROS Other: All systems not noted in ROS Statement are negative. Past Medical History Past Medical History: GERD/Reflux, Hyperlipidemia, Hypertension, Osteoarthritis (OA) Additional Past Medical History / Comment(s): Hx. of migraines. has abd. bloating-pain. hiatal hernia History of Any Multi-Drug Resistant Organisms: None Reported Past Surgical History: Cholecystectomy, Hysterectomy, Orthopedic Surgery Additional Past Surgical History / Comment(s): R hip surgery.EGD AND COLONOSCOPY. Past Anesthesia/Blood Transfusion Reactions: No Reported Reaction Past Psychological History: Depression Smoking Status: Former smoker Past Alcohol Use History: Occasional Past Drug Use History: None Reported - Past Family History Father Family Medical History: Cancer Additional Family Medical History / Comment(s): Kidney Mother Family Medical History: Cancer General Exam Limitations: no limitations General appearance: alert, in no apparent distress Eye exam: Present: normal appearance, PERRL, EOMI. Absent: scleral icterus, conjunctival injection, periorbital swelling Neck exam: Present: normal inspection, other (anterior rash with 3 areas of excoriation and rasied skin, no purulence and non-vesicular). Absent: tenderness, meningismus, lymphadenopathy Respiratory exam: Present: normal lung sounds bilaterally. Absent: respiratory distress, wheezes, rales, rhonchi, stridor Cardiovascular Exam: Present: regular rate, normal rhythm, normal heart sounds. Absent: systolic murmur, diastolic murmur, rubs, gallop, clicks GI/Abdominal exam: Present: soft, normal bowel sounds. Absent: distended, tenderness, guarding, rebound, rigid Course Vital Signs 12/07/24 19:39 Temperature 98.4 F Pulse Rate 107 H Respiratory 18 Rate Blood Pressure 159/108 O2 Sat by Pulse 98 Oximetry Medical Decision Making - Medical Decision Making Was pt. sent in by a medical professional or institution (, PA, DIGITAL SOLUTION ARCHITECT, urgent care, hospital, or detention...) When possible be specific @ -No Did you speak to anyone other than the patient for history (EMS, parent, family, police, friend...)? What history was obtained from this source @ -No Did you review nursing and triage notes (agree or disagree)? Why? @ -I reviewed and agree with nursing and triage notes Were old charts reviewed (outside hosp., previous admission, EMS record, old EKG, old radiological studies, urgent care reports/EKG's, detention records)? Report findings @ -No old charts were reviewed Differential Diagnosis (chest pain, altered mental status, abdominal pain women, abdominal pain men, vaginal bleeding, weakness, fever, dyspnea, syncope, headache, dizziness, GI bleed, back pain, seizure, CVA, palpatations, mental health, musculoskeletal)? @ -Contact dermatitis, abscess, urticaria, bug bite, this list not all inclusive EKG interpreted by me (3pts min.). @ -None X-rays interpreted by me (1pt min.). @ -None done CT interpreted by me (1pt min.). @ -None done U/S interpreted by me (1pt. min.). @ -None done What testing was considered but not performed or refused? (CT, X-rays, U/S, l abs)? Why? @ -None What meds were considered but not given or refused? Why? @ -None Did you discuss the management of the patient with other professionals (professionals i.e. , PA, DIGITAL SOLUTION ARCHITECT, lab, RT, psych nurse, social media editor, admiralty lawyer, teacher, hearing officer, immigration case manager)? Give summary @ -No Was smoking cessation discussed for >3mins.? @ -No Was critical care preformed (if so, how long)? @ -No Were there social determinants of health that impacted care today? How? (Homelessness, low income, unemployed, alcoholism, drug addiction, transportation, low edu. Level, literacy, decrease access to med. care, alf, rehab)? @ -No Was there de-escalation of care discussed even if they declined (Discuss DNR or withdrawal of care, Hospice)? DNR status @ -No What co-morbidities impacted this encounter? (DM, HTN, Smoking, COPD, CAD, Cancer, CVA, ARF, Chemo, Hep., AIDS, mental health diagnosis, sleep apnea, morbid obesity)? @ -None Was patient admitted / discharged? Hospital course, mention meds given and route, prescriptions, significant lab abnormalities, going to OR and other pertinent info. @ -Discharge. 54-year-old female presenting to the Emergency Department for rash on the anterior neck. There are 3 areas of concern noted over the patient's neck that appear to be infectious in nature. There is no evidence of vesicular lesions. Vitals are stable. Patient is provided with topical ant ibiotics with concern for infectious etiology and is instructed follow with primary care provider for further evaluation and return parameters have been discussed. Case discussed with Dr. Garnett Undiagnosed new problem with uncertain prognosis? @ -No Drug Therapy requiring intensive monitoring for toxicity (Heparin, Nitro, Insulin, Cardizem)? @ -No Were any procedures done? @ -No Diagnosis/symptom? @ -Rash Acute, or Chronic, or Acute on Chronic? @ -Acute Uncomplicated (without systemic symptoms) or Complicated (systemic symptoms)? @ -Uncomplicated Side effects of treatment? @ -No Exacerbation, Progression, or Severe Exacerbation? @ -No Poses a threat to life or bodily function? How? (Chest pain, [place], OR, pneumonia, PE, COPD, DKA, ARF, appy, cholecystitis, CVA, Diverticulitis, Homicidal, Suicidal, threat to staff... and all critical care pts) @ -No Disposition Clinical Impression: Rash of neck Disposition: HOME SELF-CARE Condition: Good Instructions (If sedation given, give patient instructions): Acute Rash (ED) Additional Instructions: Please return to the Emergency Department if symptoms worsen or any other concerns. Is patient prescribed a controlled substance at d/c from ED?: No Referrals: Ash [place] DO [STAFF PHYSICIAN] - 1-2 days Time of Disposition: 19:54
[2024-12-07] MEDS: MUPIROCIN 2% OINT 22 GM TUBE TOPICAL STA (20:07)
== END 2024-12-07 20:07 | disposition home or self-care (01) ==
LOC: EC 19:38
DX: R21 Rash and other nonspecific skin eruption (principal); Z88.0 Allergy status to penicillin; Z88.1 Allergy status to other antibiotic agents; Z88.2 Allergy status to sulfonamides; Z87.891 Personal history of nicotine dependence
CPT/HCPCS: 99282